=== PATIENT | male | born 1990 | race Caucasian/White ===

== ENCOUNTER 2019-03-18 10:58 | Emergency (ER) | payer BC ==
[~2019-03-18] VITALS: Ht 182.9 cm; Wt 90.7 kg
[~2019-03-18 10:58] MED LIST: ALEVE-D SINUS1 EACH PO; PEPCID40 MG PO
[2019-03-18] MEDS ORDERED: IBUPROFEN 600600 M1 PO (12:39)
[2019-03-18] MEDS ORDERED: AUGMENTIN 875-1 EACH PO (12:39)
[2019-03-18 13:33] VITALS: BP 119/73
== END 2019-03-18 13:31 | disposition home or self-care (01) ==
LOC: ER 10:58
DX: S61.401A Unspecified open wound of right hand, initial encounter (principal); W57.XXXA Bitten or stung by nonvenomous insect and other nonvenomous arthropods, initial encounter; Y93.89 Activity, other specified; Y92.89 Other specified places as the place of occurrence of the external cause; Y99.8 Other external cause status

== ENCOUNTER 2019-07-15 21:22 | Emergency (ER) | payer OTHER ==
[~2019-07-15] VITALS: Ht 180.3 cm; Wt 80.7 kg
[~2019-07-15 21:22] MED LIST changes: +AUGMENTIN 875-1 EACH PO; +IBUPROFEN 600600 M1 PO
[2019-07-15] MEDS ORDERED: NOHOMEMEDICATIONS (21:37)
[2019-07-15] MEDS ORDERED: LIDOCAINE PAIN1 EACH TRANSDERM ×2 (22:12)
[2019-07-15] MEDS ORDERED: MOBIC15 MG PO (22:12)
[2019-07-15] MEDS ORDERED: CYCLOBENZAPRINE5 MG PO (22:12)
[2019-07-15 23:15] VITALS: BP 120/85
== END 2019-07-15 23:16 | disposition home or self-care (01) ==
LOC: ER 21:22
DX: M54.2 Cervicalgia (principal); M54.5 Low back pain; M62.838 Other muscle spasm; V89.2XXA Person injured in unspecified motor-vehicle accident, traffic, initial encounter; Y93.89 Activity, other specified; Y92.89 Other specified places as the place of occurrence of the external cause; Y99.8 Other external cause status